=== PATIENT | male | born 1965 | race Caucasian/White ===

== ENCOUNTER 2020-11-25 15:24 | Emergency (ER) | payer BC ==
[~2020-11-25] VITALS: Ht 177.8 cm; Wt 88.6 kg
[~2020-11-25 15:24] MED LIST: ANDROGEL1.62% TP; CRESTOR20 MG PO; LAMICTAL150 MG PO; LEXAPRO20 MG PO; LOTENSIN20 MG PO; NORCO 325 MG-51 TAB PO; PYRIDIUM 100MG100 MG PO; SENOKOT S 50 MG1 TAB PO
[2020-11-25 15:33] VITALS: TEMP 98.4
[2020-11-25 17:00] VITALS: BP 150/92; PULSE 77
[2020-11-25 17:07] LABS: BASO # 0.1 (0.0-0.2); BASO % 1.1 % (0.0-2.0); EOS # 0.2 (0.0-0.7); EOS % 3.8 % (0-4.0); GRAN # 2.7 (1.4-6.5); GRAN % 51.7 % (42.2-75.2); HEMOGLOBIN 12.6 g/dl (13.5-18.0); LYMPH # 1.7 (1.2-3.4); LYMPH % 31.8 % (20.0-51.0); MEAN CELL VOLUME 89 fl (80.0-100.0); MEAN CORPUSCULAR HEMOGLOBIN 30 pg (27.0-31.0); MEAN CORPUSCULAR HGB CONC 34 g/dl (33.0-37.0); MEAN PLATELET VOLUME 10.1 fl (7.4-10.4); MONO # 0.6 (0.1-0.6); MONO % 11.2 % (1.7-9.3); PLATELET COUNT 203 K/mm3 (130-400); RED BLOOD COUNT 4.15 M/mm3 (4.20-5.60); REDCELL DISTRIBUTION WIDTH-CV 12.2 % (11.5-14.5)
[2020-11-25 17:18] LABS: HEMATOCRIT 36.9 % (42.0-52.0)
[2020-11-25 17:19] LABS: CALCIUM 9.2 mg/dL (8.4-10.2); CREATININE, serum 0.79 (0.66-1.25); POTASSIUM 3.4 mmol/L (3.4-5.0)
== END 2020-11-25 16:55 | disposition home or self-care (01) ==
LOC: COL.ER 15:24
PROVIDERS: Family Medicine
DX: R31.9 Hematuria, unspecified (principal)

== ENCOUNTER 2020-11-29 09:27 | Observation (INO) | payer BC ==
[~2020-11-29] VITALS: Ht 177.8 cm; Wt 90.7 kg
[2020-11-29] VITALS (9 sets, daily range): BP systolic 110–137; BP diastolic 65–75; PULSE 59–67; TEMP 97.8–98.8
--- NOTE | 2020-11-29 10:25 | NUR ---
PATIENT HAS CAST ON RIGHT FOOT UP TO KNEE.
[2020-11-29] MEDS ORDERED: FLOMAX 0.40.4 MG/CAP PO (10:30)
--- NOTE | 2020-11-29 10:35 | NUR ---
TO RM 4 AT 0950- CALL LIGHT IN REACH
--- NOTE | 2020-11-29 12:50 | NUR ---
PATIENT ADMITED INTO ROOM 322 POST OP. A&O. VSS. DENIES PAIN. VENEGAS TO DD WITH CBI INFUSING AT MOD RATE. NOTED MOD AMOUNTS OF CLEAR PINK URINE. HEAD TO TOE ASSESSMENT WNL. PATIENT ADMITED WITH CASE TO RLE FROM PREVIOUS BREAK. ORIENTED TO ROOM. CALL LIGHT IN REACH. N C/O N/V. LIQUIDS AT BEDSIDE.
--- NOTE | 2020-11-29 15:00 | NUR ---
PATIENT TOLERATING PO WELL. NO C/O N/V. IV TO INT. CBI INFUSING AT MOD RATE WITH CLEAR PINK URINE NOTED, NO CLOTS. VSS
--- NOTE | 2020-11-29 22:53 | NUR ---
Patient laying in bed upon enter the room. Patient alert and oriented. Patient c/o pain to his abdomen area 01/21. PRN MOrphine given at 20:03PM. Right lower leg cast in place. Patient denies numbness/tingling. CBI infusing well with pink color clear urine noted in the drainage bag. All scheduled meds given per MAR. Call light within reach. Patient denies any needs at this time.
[2020-11-30 00:21] VITALS: BP 109/62; PULSE 62; TEMP 97.6
[2020-11-30 04:04] VITALS: BP 124/61; PULSE 62; TEMP 97.3
--- NOTE | 2020-11-30 05:49 | NUR ---
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 Patient denies any pain/discomfort, SOB/dyspnea, or N/V. Tolerating PO intake well. No acute distress noted.
--- NOTE | 2020-11-30 06:31 | NUR ---
Patient was able to get up from bed and bear weight on both legs, take a few steps without dizziness, SOB, or c/o pain around 06:20 am. Call light within reach. Patient denies any needs at this time.
[2020-11-30 07:28] VITALS: BP 129/72; PULSE 65; TEMP 97.6
--- NOTE | 2020-11-30 08:55 | NUR ---
Pt assessment complete. Pt is sitting up in bed upon entry, he is A/O x4. His breathing is even and unlabored on 2L O2 via NC. Pt denies SOB. Reports he does not typically wear oxygen. Denies pain at this time. Kendrick primed and pulled. POC to use urinal and 6 cups discussed with patient. Cast in place to RLE ankle up to knee. No needs at this time. Call light within reach.
--- NOTE | 2020-11-30 10:10 | NUR ---
KESHA met with the patient and his , Rosamaira (ph#[phone]), to discuss discharge plan. The patient lives in [place] with his . He reports independence with ADLs and has an i[employer] crutch. The patient's PCP is Dr. Arturo Henriquez and he receives his medications from [facility]. He reports no difficulties obtaining his meds. The patient does not have a DPOA-HC, but he was interested in obtaining a form. KESHA provided. The patient plans to return home with his upon discharge. No additional needs at this time.
--- NOTE | 2020-11-30 10:34 | NUR ---
Initial visit; Patient and Pest Control Service Sales Agent had a good spiritual visit. Patient thanked Pest Control Service Sales Agent for keeping him in her prayers and offering God's blessings.
[2020-11-30 11:12] VITALS: BP 124/64; PULSE 69; TEMP 97.5
--- NOTE | 2020-11-30 13:09 | NUR ---
Discharge paperwork and instructions reviewed with patient, all questions answered at this time. IV to LFA dc'd catheter tip intact.
--- NOTE | 2020-11-30 13:19 | NUR ---
Pt walked out of facility at this time.
== END 2020-11-30 13:20 | disposition home or self-care (01) ==
LOC: SDCO 09:27 → SURG 11:55
PROVIDERS: ADMIT Urology
DX: N30.41 Irradiation cystitis with hematuria (principal); E78.00 Pure hypercholesterolemia, unspecified; F32.9 Major depressive disorder, single episode, unspecified; E23.0 Hypopituitarism; E78.5 Hyperlipidemia, unspecified; F41.9 Anxiety disorder, unspecified; K21.9 Gastro-esophageal reflux disease without esophagitis; Z85.6 Personal history of leukemia
CPT/HCPCS: J0690; J1100; J2270; J2405; J2704; J3010; J7120

== ENCOUNTER → 2022-11-09 | Outpatient (CLI) | payer BC ==
[~2022-11-09] MED LIST changes: +FLOMAX 0.40.4 MG/CAP PO
== END ==
LOC: COL.RAD 12:24
DX: N13.30 Unspecified hydronephrosis (principal)

== ENCOUNTER 2023-01-01 09:53 | Day surgery (SDC) | payer BC ==
[~2023-01-01] VITALS: Ht 177.8 cm; Wt 84.5 kg
[2023-01-01 10:32] VITALS: BP 146/87; PULSE 64; TEMP 98.2
[2023-01-01 13:15] VITALS: BP 121/76; PULSE 80; TEMP 98.2
[2023-01-01 13:30] VITALS: BP 131/69; PULSE 84
[2023-01-01 13:45] VITALS: BP 118/75; PULSE 74
[2023-01-01 14:00] VITALS: BP 116/71; PULSE 74
--- NOTE | 2023-01-01 14:15 | NUR ---
1315 RETURNS TO ROOM 5 PER CART. AWAKE, ALERT. RESP UNLABORED. HOB ELEVATES 40 DEGREES. DENIES ABD PAIN OR URINARY URGENCY. VITAL SIGNS OBTAINED. CALL LIGHT AT SIDE. IN ROOM 1330 TOLERATES PO WATER AND MUFFIN WITHOUT NAUSEA 1350 DISCHARGE INSTRUCTIONS REVIEWED. PATIENT VERBALIZES UNDERSTANDING. COPY PROVIDED IN DISCHARGE FOLDER 9376 SITS ON EDGE OF CART. DRESSES SELF, THEN AMBULATES TO BATHROOM WITH STANDBY ASSIST. REPORTS VOIDS WITHOUT DIFFICULTY LIGHT RED URINE
== END 2023-01-01 14:17 | disposition home or self-care (01) ==
LOC: SDCO 09:53
DX: N13.30 Unspecified hydronephrosis (principal); N30.40 Irradiation cystitis without hematuria; I12.9 Hypertensive chronic kidney disease with stage 1 through stage 4 chronic kidney disease, or unspecified chronic kidney disease; N18.9 Chronic kidney disease, unspecified; N13.732 Vesicoureteral-reflux with reflux nephropathy with hydroureter, bilateral; N39.44 Nocturnal enuresis; R94.4 Abnormal results of kidney function studies; Z87.891 Personal history of nicotine dependence
CPT/HCPCS: A4215; J0585; J0690; J1100; J2405; J2704; J3010; J7120; Q9967